=== PATIENT | male | born 1975 | race Hispanic/Latino ===

== ENCOUNTER 2016-11-15 07:24 | Inpatient (IN) | payer OTHER ==
--- NOTE | 2016-11-15 08:03 | Emergency Department Report ---
HPI - General Chief Complaint: Fever Time Seen by Provider: 11/15/16 07:52 - HPI HPI: This is a 40-year-old male presents to the emergency department by EMS from work with a complaint of fever, chills, shaking and weakness that has been going on for the past 3-4 hours. 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 The patient says that he has a history of recurrent left lower extremity cellulitis and borderline diabetes. He didn't take anything or was not given anything for his symptoms prior to presentation. ED Past Medical Hx - Past Medical History Hx Diabetes: Yes (Borderline) - Social History Smoking Status: Current Every Day Smoker Substance Use Type: None - Medications Home Medications: Home Medications Medication Instructions Recorded Confirmed Last Taken Type No Known Home Medications [No 11/15/16 11/15/16 Unknown History Reported Home Medications] ED Review of Systems ROS: Stated complaint: SHAKING/SHIVERS/FEVER Other details as noted in HPI Comment: All other systems reviewed and negative Constitutional: chills, fever Eyes: denies: eye pain, eye discharge, vision change ENT: denies: ear pain, throat pain Respiratory: cough. denies: wheezing Cardiovascular: denies: chest pain, palpitations Gastrointestinal: denies: abdominal pain, nausea, diarrhea Genitourinary: denies: urgency, dysuria Musculoskeletal: myalgia. denies: back pain Skin: rash, change in color Neurological: denies: headache, weakness, paresthesias Physical Exam - Physical Exam Vital Signs: Vital Signs 11/15/16 07:31 Temperature 103.1 F H Pulse Rate 104 H Blood Pressure 115/65 O2 Sat by Pulse 97 Oximetry Physical Exam: GENERAL: The patient is ill-appearing and shivering. HENT: Normocephalic. Atraumatic. Patient has moist mucous membranes. EYES: Extraocular motions are intact. Pupils equal reactive to light bilaterally. NECK: Supple. Trachea is midline. CHEST/LUNGS: Clear to auscultation. There is no respiratory distress noted. HEART/CARDIOVASCULAR: Regular. There is mild tachycardia. There is no gallop rub or murmur. ABDOMEN: Abdomen is soft, nontender. Patient has normal bowel sounds. There is no abdominal distention. SKIN: Skin is hot but dry. There is some erythema and warmth to the distal left lower extremity consistent with a cellulitis. NEURO: The patient is awake, alert. The patient is cooperative. The patient has no focal neurologic deficits. The patient has normal speech. MUSCULOSKELETAL: There is some tenderness palpation to the left lower extremity.. There is no limitation range of motion. ED Course Vital Signs 11/15/16 07:31 Temperature 103.1 F H Pulse Rate 104 H Blood Pressure 115/65 O2 Sat by Pulse 97 Oximetry ED Medical Decision Making - Lab Data Result diagrams: 11/15/16 07:50 11/15/16 07:50 - EKG Data -: EKG Interpreted by Me EKG shows normal: sinus rhythm, axis, intervals, QRS complexes, ST-T waves Rate: tachycardia (108 bpm) - EKG Data When compared to previous EKG there are: previous EKG unavailable Interpretation: normal EKG (with sinus tach) - Radiology Data Radiology results: report reviewed, image reviewed interpreted by me: Chest x-ray does not show any acute process. There are no pleural effusions, obvious pneumonia and there is no pneumothorax. CT of the head does not show any acute intracranial process including no ischemia, shift, mass, bleeding or skull fracture. - Medical Decision Making 40-year-old male presents to the emergency department by EMS, shivering, with a fever of 103, complaint of recurrent left lower extremity cellulitis and a mild cough. Chest x-ray does not show any acute process. There is a mild cellulitic rash to the left lower extremity. He was started on vancomycin after blood cultures were sent. Labs show a leukocytosis, lactic acidosis but otherwise no significant lab abnormalities that explain the patient's symptoms. He was given Tylenol and eventually Toradol and his fever improved. Attempted to get a left lower extremity venous Doppler to rule out a DVT but the patient refuses procedure. He did allow a CT of the head without contrast but it did not show any acute bleed, shift, mass, signs of infection or any acute process. The patient will be admitted to the hospital for sepsis and has been accepted for admission by the hospitalist, Dr. Garcia. - Differential Diagnosis Sepsis, Viral Syndrome, Cellulitis, Pneumonia Critical Care Time: No Critical care attestation.: If time is entered above; I have spent that time in minutes in the direct care of this critically ill patient, excluding procedure time. ED Disposition Clinical Impression: Lactic acidosis Cellulitis Qualifiers: Site of cellulitis: extremity Site of cellulitis of extremity: lower extremity Laterality: left Qualified Code(s): L03.116 - Cellulitis of left lower limb Sepsis Qualifiers: Sepsis type: sepsis due to unspecified organism Qualified Code(s): A41.9 - Sepsis, unspecified organism Disposition: OP ADMIT IP TO THIS HOSP Is pt being admited?: Yes Condition: Fair Time of Disposition: 15:08
[2016-11-15] MEDS ORDERED: TYLENOL PO ONE (08:04)
--- NOTE | 2016-11-15 08:13 | XRay Report ---
AP CHEST: HISTORY: Cough AP view of the chest demonstrates a normal mediastinal and cardiac contour with clear lungs and normal bony and soft tissue structures. IMPRESSION: Unremarkable AP chest.
[2016-11-15 08:14] LABS: Hematocrit 43.6 % (35.5-45.6); Hemoglobin 14.9 gm/dl (11.8-15.2); Mean Corpuscular HGB Conc 34 % (32-34); Mean Corpuscular Hemoglobin 33 pg (28-32); Mean Corpuscular Volume 96 fl (84-94); Platelet Count 124 K/mm3 (140-440); Red Blood Count 4.55 M/mm3 (3.65-5.03); Red Cell Distribution Width 12.9 % (13.2-15.2); White Blood Count 11.6 K/mm3 (4.5-11.0)
[2016-11-15 08:24] LABS: Anion Gap 18 mmol/L; Blood Urea Nitrogen 14 mg/dL (9-20); Calcium 8.2 mg/dL (8.4-10.2); Carbon Dioxide 23 mmol/L (22-30); Chloride 99.7 mmol/L (98-107); Glucose 146 mg/dL (75-100); Potassium 3.8 mmol/L (3.6-5.0); Sodium 137 mmol/L (137-145)
[2016-11-15 08:42] LABS: Alanine Aminotransferase 57 units/L (7-56); Albumin 3.8 g/dL (3.9-5); Albumin/Globulin Ratio 1.1 %; Alkaline Phosphatase 69 units/L (35-129); Total Protein 7.3 g/dL (6.3-8.2)
[2016-11-15 08:48] LABS: Bilirubin,Direct < 0.2 mg/dL (0-0.2); Bilirubin,Indirect 0.5 mg/dL
[2016-11-15] MEDS ORDERED: VANCOMYCIN/NS 1 GM/250 ML 1 GM/250 ML BAG IV ONE (09:08)
[2016-11-15] MEDS ORDERED: TORADOL IV ONE (09:34)
[2016-11-15 10:07] LABS: Blastocytes % (Manual) 0 %
[2016-11-15 10:08] LABS: Basophils % (Manual) 0 % (0.0-1.8); Diff Status Complete; Eosinophils % (Manual) 0 % (0.0-4.3); RBC Morphology Normal
[2016-11-15 10:28] LABS: Bilirubin,Urine NEG (Negative); Blood,Urine NEG (Negative); Ketones,Urine TR mg/dL (Negative); Leukocyte Esterase,Urine NEG (Negative); Mucus,Urine FEW /HPF; Nitrite,Urine NEG (Negative); Protein,Urine <15 mg/dL mg/dL (Negative); Urobilinogen,Urine < 2.0 mg/dL (<2.0)
[2016-11-15] MEDS ORDERED: NACL 0.9% 1000 ML 1,000 ML IV ONE (10:41)
--- NOTE | 2016-11-15 11:23 | Admit Criteria Form ---
Admission Criteria Documentation: FEBRILE ILLNESS, WITHOUT FOCAL INFECTION Clinical Indications for Admission to Inpatient Care (Place 'X' for any and all applicable criteria): Admission is indicated for ANY ONE of the following (1)(2)(3): [ ] I. Bacteremia [ ]II. Suspected or identified specific infection requiring hospitalization (eg, meningitis, endocarditis) [ ]III. Hemodynamic instability [ ]IV. Altered mental status [ ]V. Failure or unavailability of outpatient antimicrobial treatment [ ]. Hypoxemia [ ]VII. Seizures [ ]VIII. High-risk febrile neutropenia [ ]IX. Need for parenteral antibiotic in patient who is likely to abuse vascular access device (eg, injection drug user) [A](7) [ ]X. Temperature greater than 104.9 degrees F (40.5 degrees C) (oral) [X ]XI. Inpatient admission required rather than observation care because of ANY ONE of the following: [X ]a) Specific infection identified that is too severe for outpatient treatment or observation care trial [X ]b) Metabolic disorder (eg, hypoglycemia, hyperglycemia, metabolic acidosis) that is severe or persistent [ ]c) Temperature greater than 103.1 degrees F (39.5 degrees C) ( oral) that is not responsive to observation care treatment [ ]d) IV fluid to replace significant ongoing (eg, for over 24 hours) losses (> 3 L/m2 per day) [ ]e) Supplemental oxygen or respiratory treatments for over 24 hours that is performable only in acute inpatient setting [ ]f) Parenteral nutrition regimen need that must be implemented on inpatient basis [ ]g) Strict or protective (eg, laminar flow) isolation [ ]h) Other condition, treatment or monitoring requiring inpatient admission Extended stay beyond goal length of stay may be needed for(1)(3) [ ]a) Sepsis or septic shock(22) [ ]b) Positive blood cultures [ ]c) Insufficient oral intake [ ]d) High-risk febrile neutropenia(29)(30) [ ]e) Continued fever and clinical instability [ ]f) Clinically active comorbid illness (e.g,heart failure, renal failure , diabetes) The original [facility] content created by [facility] has been revised. The portions of the content which have been revised are identified through the use of italic text or in bold, and [facility] has neither reviewed nor approved the modified material. All other unmodified content is copyright [facility]. Please see references footnoted in the original [facility] edition 2016 Admission Criteria Met: Yes
--- NOTE | 2016-11-15 11:58 | Cat Scan Report ---
CT HEAD WITHOUT CONTRAST: HISTORY: Altered mental status. Serial contiguous axial images were obtained through the cranium. Intravenous contrast material was not administered. The ventricles are normal in size and appearance. There is no mass effect or midline shift. No areas of abnormally increased or decreased attenuation are seen. No mass lesion is seen. The mastoid air cells and visualized portions of the sinuses are normal. IMPRESSION: Cranial CT scan within normal limits.
[2016-11-15] MEDS ORDERED: NACL 0.9% 1000 ML IV ONE (12:59)
[2016-11-15] MEDS ORDERED: PROVENTIL IH PRN (12:59)
--- NOTE | 2016-11-15 13:04 | History and Physical Report ---
History of Present Illness Chief complaint: I had a fever, and i have cellulitis History of present illness: 40 YO Male with DM, Nicotine Dependence presents to ED for evaluation. Pt states that he began having fever this morning, while at work, as well as chills, shaking and weakness, which has gotten worse over the past 3-4 hours. Pt acknowledges left leg pain, redness and swelling that has also worsened over the past 2 days. Pt denies CP, Palpitations, NVD, Syncope, BRBPR, Recent ill contacts, seizures, productive cough, hemoptysis, or recent ill contacts. Past History Past Medical History: diabetes, other (nicotine dependence, metabolic syndrome) Past Surgical History: Other (reviewed). denies: No surgical history Social history: single, smoking. denies: alcohol abuse, prescription drug abuse , IV drug use Family history: no significant family history (reviewed) Medications and Allergies Allergies Allergy/AdvReac Type Severity Reaction Status Date / Time No Known Allergies Allergy Unverified 11/15/16 07:31 Home Medications Medication Instructions Recorded Confirmed Last Taken Type No Known Home Medications [No 11/15/16 11/15/16 Unknown History Reported Home Medications] Active Meds: Active Medications Acetaminophen (Tylenol) 650 mg PO Q4H PRN PRN Reason: Pain MILD(1-3)/Fever >100.5/GARCIA Albuterol (Proventil) 2.5 mg IH Q4HRT PRN PRN Reason: Shortness Of Breath Piperacillin Sod/Tazobactam Sod (Zosyn/Ns 4.5gm/100ml) 4.5 gm in 100 mls @ 200 mls/hr IV Q8HR AILYN PRN Reason: Protocol Sodium Chloride (Nacl 0.9% 1000 Ml) 4,080 ml 30 ml/kg (4080 ml) IV ONCE ONE Stop: 11/15/16 13:00 Review of Systems Constitutional: fever, chills, weakness, no weight loss, no weight gain Ears, nose, mouth and throat: no ear pain, no ear discharge, no tinnitis, no dysphagia, no hoarseness Cardiovascular: no chest pain, no orthopnea, no palpitations, no syncope, no dyspnea on exertion, no paroxysmal nocturnal dyspnea, no claudication Respiratory: no cough, no cough with sputum, no excessive sputum, no hemoptysis Gastrointestinal: no abdominal pain, no nausea, no vomiting Genitourinary Male: no dysuria, no hematuria, no flank pain Rectal: no pain, no incontinence, no bleeding Musculoskeletal: no neck stiffness, no neck pain, no shooting arm pain, no hot joints, no morning stiffness Integumentary: redness, no rash, no pruritis, no sores Neurological: no head injury, no transient paralysis, no paralysis, no numbness , no tingling, no syncope Psychiatric: no anxiety, no memory loss, no change in sleep habits, no hypersomnia, no change in appetite, no change in libido Endocrine: no cold intolerance, no heat intolerance, no polyphagia, no excessive thirst, no polyuria Hematologic/Lymphatic: no easy bruising, no easy bleeding Allergic/Immunologic: no urticaria, no allergic rhinitis, no wheezing Exam - Constitutional Vitals: Temp Pulse Resp BP Pulse Ox 99.7 F H 106 H 24 94/42 94 11/15/16 10:34 11/15/16 12:15 11/15/16 12:15 11/15/16 12:15 11/15/16 12:15 General appearance: Present: mild distress - EENT Eyes: Present: PERRL ENT: hearing intact, clear oral mucosa - Neck Neck: Present: supple, normal ROM - Respiratory Respiratory effort: normal Respiratory: bilateral: CTA - Cardiovascular Heart Sounds: Present: S1 & S2. Absent: rub, click - Extremities Extremities: pulses symmetrical, No edema Peripheral Pulses: abnormal (capillary refill: 3.5 seconds) - Abdominal General gastrointestinal: Present: soft, non-tender, non-distended, normal bowel sounds Male genitourinary: Present: normal - Integumentary Integumentary: Present: clear, warm, dry, decreased turgor - Musculoskeletal Musculoskeletal: generalized weakness - Psychiatric Psychiatric: appropriate mood/affect, intact judgment & insight - Neurologic Neurologic: CNII-XII intact, moves all extremities Results - Labs CBC & Chem 7: 11/15/16 07:50 11/15/16 07:50 Labs: Abnormal lab results 11/15/16 11/15/16 11/15/16 Range/Units 07:50 07:50 07:50 WBC 11.6 H (4.5-11.0) K/mm3 MCV 96 H (84-94) fl MCH 33 H (28-32) pg RDW 12.9 L (13.2-15.2) % Plt Count 124 L (140-440) K/mm3 Seg Neuts % (Manual) 80.0 H (40.0-70.0) % Lymphocytes % (Manual) 10.0 L (13.4-35.0) % Seg Neutrophils # Man 9.3 H (1.8-7.7) K/mm3 Glucose 146 H (75-100) mg/dL Lactic Acid 2.30 H* (0.7-2.0) mmol/L Calcium 8.2 L (8.4-10.2) mg/dL AST (5-40) units/L ALT (7-56) units/L Albumin (3.9-5) g/dL 11/15/16 11/15/16 Range/Units 07:50 10:20 WBC (4.5-11.0) K/mm3 MCV (84-94) fl MCH (28-32) pg RDW (13.2-15.2) % Plt Count (140-440) K/mm3 Seg Neuts % (Manual) (40.0-70.0) % Lymphocytes % (Manual) (13.4-35.0) % Seg Neutrophils # Man (1.8-7.7) K/mm3 Glucose (75-100) mg/dL Lactic Acid 2.20 H* (0.7-2.0) mmol/L Calcium (8.4-10.2) mg/dL AST 42 H (5-40) units/L ALT 57 H (7-56) units/L Albumin 3.8 L (3.9-5) g/dL Assessment and Plan - Patient Problems (1) Sepsis Current Visit: Yes Status: Acute Qualifiers: Sepsis type: methicillin resistant Staphylococcus aureus Qualified Code(s) : A41.02 - Sepsis due to Methicillin resistant Staphylococcus aureus Plan to address problem: Sepsis Protocol: IV abx, ivf, serial lactate, supportive care, blood cultures, monitor uop q shift (2) Cellulitis Current Visit: Yes Status: Acute Qualifiers: Site of cellulitis: S Site of cellulitis of extremity: S Site of cellulitis of trunk: S Laterality: L Plan to address problem: IV abx, supportive care, LLE Duplex (3) Lactic acidosis Current Visit: Yes Status: Acute Plan to address problem: IVF resuscitation, supportive care. (4) Metabolic syndrome Current Visit: Yes Status: Acute Plan to address problem: IVF, supportive care. (5) DVT prophylaxis Current Visit: Yes Status: Acute
[2016-11-15] MEDS: ZOSYN/NS 4.5GM/100ML 4.5 GM/100 ML VIAL IV SCH ×2 (14:15→22:12)
[2016-11-15] MEDS: NACL 0.9% 1000 ML 1,000 ML IV SCH ×2 (17:56→22:10)
[2016-11-15] MEDS: TYLENOL PO PRN (22:12)
[2016-11-16] MEDS: TYLENOL PO PRN (05:23)
[2016-11-16] MEDS: NACL 0.9% 1000 ML 1,000 ML IV SCH (05:24)
[2016-11-16] MEDS: ZOSYN/NS 4.5GM/100ML 4.5 GM/100 ML VIAL IV SCH ×3 (05:25→23:08)
--- NOTE | 2016-11-16 09:05 | Progress Note ---
Assessment and Plan Assessment and plan: (1) Sepsis Current Visit: Yes Status: Acute Qualifiers: Sepsis type: methicillin resistant Staphylococcus aureus Qualified Code(s) : A41.02 - Sepsis due to Methicillin resistant Staphylococcus aureus Plan to address problem: Sepsis Protocol: IV abx, ivf, monitor serial lactate, supportive care, blood cultures, monitor uop q shift (2) Cellulitis Current Visit: Yes Status: Acute Qualifiers: Site of cellulitis: S Site of cellulitis of extremity: S Site of cellulitis of trunk: S Laterality: L Plan to address problem: Continue IV abx, supportive care, LLE Duplex is negative for DVT. Pain control. (3) Lactic acidosis Current Visit: Yes Status: Acute Plan to address problem: IVF resuscitation, supportive care. (4) Metabolic syndrome Current Visit: Yes Status: Acute Plan to address problem: IVF, supportive care. (5) DVT prophylaxis Current Visit: Yes Status: Acute Add Lovenox daily. History Interval history: Patient complains of left lower extremity pain. Hospitalist Physical - Constitutional Vitals: Temp Pulse Resp BP Pulse Ox 99 F 98 H 24 95/52 94 11/16/16 07:15 11/16/16 07:15 11/16/16 07:15 11/16/16 07:15 11/16/16 07:15 General appearance: Present: mild distress - EENT Eyes: Present: PERRL, EOM intact ENT: hearing intact, clear oral mucosa, dentition normal - Neck Neck: Present: supple, normal ROM - Respiratory Respiratory effort: normal Respiratory: bilateral: CTA - Cardiovascular Rhythm: regular Heart Sounds: Present: S1 & S2. Absent: gallop, rub - Extremities Extremities: no ischemia, Full ROM Extremity abnormal: edema, erythema (LLE) - Abdominal General gastrointestinal: soft, non-tender, non-distended, normal bowel sounds - Integumentary Integumentary: Present: clear, warm, dry - Neurologic Neurologic: CNII-XII intact, moves all extremities Results - Labs CBC & Chem 7: 11/15/16 07:50 11/15/16 07:50 Labs: Laboratory Last Values WBC 11.6 K/mm3 (4.5-11.0) H 11/15/16 07:50 RBC 4.55 M/mm3 (3.65-5.03) 11/15/16 07:50 Hgb 14.9 gm/dl (11.8-15.2) 11/15/16 07:50 Hct 43.6 % (35.5-45.6) 11/15/16 07:50 MCV 96 fl (84-94) H 11/15/16 07:50 MCH 33 pg (28-32) H 11/15/16 07:50 MCHC 34 % (32-34) 11/15/16 07:50 RDW 12.9 % (13.2-15.2) L 11/15/16 07:50 Plt Count 124 K/mm3 (140-440) L 11/15/16 07:50 Add Manual Diff Complete 11/15/16 07:50 Total Counted 100 11/15/16 07:50 Seg Neuts % (Manual) 80.0 % (40.0-70.0) H 11/15/16 07:50 Band Neutrophils % 6.0 % 11/15/16 07:50 Lymphocytes % (Manual) 10.0 % (13.4-35.0) L 11/15/16 07:50 Reactive Lymphs % (Man) 0 % 11/15/16 07:50 Monocytes % (Manual) 4.0 % (0.0-7.3) 11/15/16 07:50 Eosinophils % (Manual) 0 % (0.0-4.3) 11/15/16 07:50 Basophils % (Manual) 0 % (0.0-1.8) 11/15/16 07:50 Metamyelocytes % 0 % 11/15/16 07:50 Myelocytes % 0 % 11/15/16 07:50 Promyelocytes % 0 % 11/15/16 07:50 Blast Cells % 0 % 11/15/16 07:50 Nucleated RBC % Not Reportable 11/15/16 07:50 Seg Neutrophils # Man 9.3 K/mm3 (1.8-7.7) H 11/15/16 07:50 Band Neutrophils # 0.7 K/mm3 11/15/16 07:50 Lymphocytes # (Manual) 1.2 K/mm3 (1.2-5.4) 11/15/16 07:50 Abs React Lymphs (Man) 0.0 K/mm3 11/15/16 07:50 Monocytes # (Manual) 0.5 K/mm3 (0.0-0.8) 11/15/16 07:50 Eosinophils # (Manual) 0.0 K/mm3 (0.0-0.4) 11/15/16 07:50 Basophils # (Manual) 0.0 K/mm3 (0.0-0.1) 11/15/16 07:50 Metamyelocytes # 0.0 K/mm3 11/15/16 07:50 Myelocytes # 0.0 K/mm3 11/15/16 07:50 Promyelocytes # 0.0 K/mm3 11/15/16 07:50 Blast Cells # 0.0 K/mm3 11/15/16 07:50 WBC Morphology Not Reportable 11/15/16 07:50 Hypersegmented Neuts Not Reportable 11/15/16 07:50 Hyposegmented Neuts Not Reportable 11/15/16 07:50 Hypogranular Neuts Not Reportable 11/15/16 07:50 Smudge Cells Not Reportable 11/15/16 07:50 Toxic Granulation Not Reportable 11/15/16 07:50 Toxic Vacuolation Not Reportable 11/15/16 07:50 Dohle Bodies Not Reportable 11/15/16 07:50 Pelger-Huet Anomaly Not Reportable 11/15/16 07:50 Dipti Rods Not Reportable 11/15/16 07:50 Platelet Estimate Not Reportable 11/15/16 07:50 Clumped Platelets Not Reportable 11/15/16 07:50 Plt Clumps, EDTA Not Reportable 11/15/16 07:50 Large Platelets Not Reportable 11/15/16 07:50 Giant Platelets Not Reportable 11/15/16 07:50 Platelet Satelliting Not Reportable 11/15/16 07:50 Plt Morphology Comment Not Reportable 11/15/16 07:50 RBC Morphology Normal 11/15/16 07:50 Dimorphic RBCs Not Reportable 11/15/16 07:50 Polychromasia Not Reportable 11/15/16 07:50 Hypochromasia Not Reportable 11/15/16 07:50 Poikilocytosis Not Reportable 11/15/16 07:50 Anisocytosis Not Reportable 11/15/16 07:50 Microcytosis Not Reportable 11/15/16 07:50 Macrocytosis Not Reportable 11/15/16 07:50 Spherocytes Not Reportable 11/15/16 07:50 Pappenheimer Bodies Not Reportable 11/15/16 07:50 Sickle Cells Not Reportable 11/15/16 07:50 Target Cells Not Reportable 11/15/16 07:50 Tear Drop Cells Not Reportable 11/15/16 07:50 Ovalocytes Not Reportable 11/15/16 07:50 Helmet Cells Not Reportable 11/15/16 07:50 Roe-Portal Bodies Not Reportable 11/15/16 07:50 [place] Rings Not Reportable 11/15/16 07:50 Piffard Cells Not Reportable 11/15/16 07:50 Bite Cells Not Reportable 11/15/16 07:50 Crenated Cell Not Reportable 11/15/16 07:50 Elliptocytes Not Reportable 11/15/16 07:50 Acanthocytes (Spur) Not Reportable 11/15/16 07:50 Rouleaux Not Reportable 11/15/16 07:50 Hemoglobin C Crystals Not Reportable 11/15/16 07:50 Schistocytes Not Reportable 11/15/16 07:50 Malaria parasites Not Reportable 11/15/16 07:50 Evin Bodies Not Reportable 11/15/16 07:50 Hem Pathologist Commnt No 11/15/16 07:50 D-Dimer 298.29 ng/mlDDU (0-234) H 11/15/16 12:33 Sodium 137 mmol/L (137-145) 11/15/16 07:50 Potassium 3.8 mmol/L (3.6-5.0) 11/15/16 07:50 Chloride 99.7 mmol/L (98-107) 11/15/16 07:50 Carbon Dioxide 23 mmol/L (22-30) 11/15/16 07:50 Anion Gap 18 mmol/L 11/15/16 07:50 BUN 14 mg/dL (9-20) 11/15/16 07:50 Creatinine 0.8 mg/dL (0.8-1.5) 11/15/16 07:50 Estimated GFR > 60 ml/min 11/15/16 07:50 BUN/Creatinine Ratio 17.50 % 11/15/16 07:50 Glucose 146 mg/dL (75-100) H 11/15/16 07:50 POC Glucose 135 (70-105) H 11/16/16 06:32 Lactic Acid 2.20 mmol/L (0.7-2.0) H* 11/15/16 19:40 Calcium 8.2 mg/dL (8.4-10.2) L 11/15/16 07:50 Total Bilirubin 0.70 mg/dL (0.1-1.2) 11/15/16 07:50 Direct Bilirubin < 0.2 mg/dL (0-0.2) 11/15/16 07:50 Indirect Bilirubin 0.5 mg/dL 11/15/16 07:50 AST 42 units/L (5-40) H 11/15/16 07:50 ALT 57 units/L (7-56) H 11/15/16 07:50 Alkaline Phosphatase 69 units/L (35-129) 11/15/16 07:50 Troponin T < 0.010 ng/mL (0.00-0.029) 11/15/16 07:50 Total Protein 7.3 g/dL (6.3-8.2) 11/15/16 07:50 Albumin 3.8 g/dL (3.9-5) L 11/15/16 07:50 Albumin/Globulin Ratio 1.1 % 11/15/16 07:50 Urine Color Yellow (Yellow) 11/15/16 10:14 Urine Turbidity Clear (Clear) 11/15/16 10:14 Urine pH 5.0 (5.0-7.0) 11/15/16 10:14 Ur Specific [place] 1.013 (1.003-1.030) 11/15/16 10:14 Urine Protein <15 mg/dl mg/dL (Negative) 11/15/16 10:14 Urine Glucose (UA) Neg mg/dL (Negative) 11/15/16 10:14 Urine Ketones Tr mg/dL (Negative) 11/15/16 10:14 Urine Blood Neg (Negative) 11/15/16 10:14 Urine Nitrite Neg (Negative) 11/15/16 10:14 Urine Bilirubin Neg (Negative) 11/15/16 10:14 Urine Urobilinogen < 2.0 mg/dL (<2.0) 11/15/16 10:14 Ur Leukocyte Esterase Neg (Negative) 11/15/16 10:14 Urine WBC (Auto) 1.0 /HPF (0.0-6.0) 11/15/16 10:14 Urine RBC (Auto) 3.0 /HPF (0.0-6.0) 11/15/16 10:14 Urine Mucus Few /HPF 11/15/16 10:14 Blood Type A POSITIVE 11/15/16 13:26 Antibody Screen Negative 11/15/16 13:26
[2016-11-16 09:07] LABS: Urine Drugs of Abuse Note Disclamer
--- NOTE | 2016-11-16 09:30 | Vascular Lab Report ---
Left Lower Extremity Venous Duplex Study: Reason for Exam: Pain of the left lower extremity. Comments on the Right: A limited duplex study was done of the proximal veins of the right lower extremity. All veins visualized are freely compressible without evidence of internal echogenicity. Flow is spontaneous and phasic throughout. No evidence of acute or chronic thrombus is seen in any of the vessels visualized. Comments on the Left: All veins visualized are freely compressible without evidence of internal echogenicity. Flow is spontaneous and phasic throughout. No evidence of acute or chronic thrombus is seen in any of the vessels visualized. Impression: No evidence of acute or chronic deep venous thrombosis in the left lower extremity.
[2016-11-16 09:45] LABS: Bilirubin,Urine NEG (Negative); Blood,Urine NEG (Negative); Ketones,Urine 20 mg/dL (Negative); Leukocyte Esterase,Urine NEG (Negative); Nitrite,Urine NEG (Negative); Protein,Urine <15 mg/dL mg/dL (Negative); Urobilinogen,Urine < 2.0 mg/dL (<2.0)
[2016-11-16] MEDS: VANCOMYCIN 1,750 MG in NACL 0.9% 500 ML 500 ML IV SCH ×2 (10:59→21:06)
[2016-11-16] MEDS ORDERED: VANCOMYCIN PHARMACY TO DOSE IV SCH (11:00)
[2016-11-16] MEDS: ROBITUSSIN DM PO PRN (13:05)
[2016-11-16] MEDS: PERCOCET 5/325 PO PRN ×3 (13:06→23:59)
[2016-11-16] MEDS: HABITROL TD SCH (16:34)
[2016-11-16] MEDS: LOVENOX SUB-Q SCH (21:33)
[2016-11-17] MEDS: VANCOMYCIN 1,750 MG in NACL 0.9% 500 ML 500 ML IV SCH ×3 (04:47→21:13)
[2016-11-17] MEDS: PERCOCET 5/325 PO PRN ×3 (05:43→18:10)
[2016-11-17 05:53] LABS: Anion Gap 18 mmol/L; BUN/Creatinine Ratio 14.28; Blood Urea Nitrogen 10 mg/dL (9-20); Calcium 8.1 mg/dL (8.4-10.2); Carbon Dioxide 25 mmol/L (22-30); Chloride 97.7 mmol/L (98-107); Glucose 105 mg/dL (75-100); Potassium 3.3 mmol/L (3.6-5.0); Sodium 137 mmol/L (137-145)
[2016-11-17 05:56] LABS: Basophils % (Auto) 0.3 % (0.0-1.8); Eosinophils % (Auto) 1.1 % (0.0-4.3); Hematocrit 41.2 % (35.5-45.6); Mean Corpuscular HGB Conc 34 % (32-34); Mean Corpuscular Hemoglobin 33 pg (28-32); Mean Corpuscular Volume 95 fl (84-94); Platelet Count 125 K/mm3 (140-440); Red Blood Count 4.33 M/mm3 (3.65-5.03); Red Cell Distribution Width 12.8 % (13.2-15.2); White Blood Count 12.4 K/mm3 (4.5-11.0)
[2016-11-17] MEDS: ZOSYN/NS 4.5GM/100ML 4.5 GM/100 ML VIAL IV SCH ×3 (06:27→21:16)
[2016-11-17] MEDS: HABITROL TD SCH (09:24)
[2016-11-17] MEDS ORDERED: K-DUR PO ONE (13:00)
--- NOTE | 2016-11-17 19:44 | Progress Note ---
Assessment and Plan Assessment and plan: 40 yo male, morbidly obese, with multiple episodes of left leg cellulitis, presented for left leg pain, redness, swelling associated with fever and chills 1. Sepsis due to LE cellulitis Blood cultures obtained Started on IV antibiotics and IV fluids 2. LLE cellulitis History of multiple episodes in the past (same location) Doppler excluded DVT/SVT Continue IV antibiotics, pain control medication, local and supportive care 3. Hypokalemia Replace and recheck in a.m. 4. Thrombocytopenia Likely secondary to sepsis Monitor 5. Morbid obesity/metabolic syndrome Counseled regarding importance of losing weight and lifestyle changes 6. Tobacco abuse Nicotine patch Counseled regarding importance of quitting 7. CHARLES CPAP daily at bedtime and prn during naps 8. DVT prophylaxis Lovenox History Interval history: c/o left leg pain Hospitalist Physical - Constitutional Vitals: Temp Pulse Resp BP Pulse Ox 98.9 F 96 H 16 115/76 65 L 11/17/16 14:25 11/17/16 14:25 11/17/16 14:25 11/17/16 14:25 11/17/16 14:25 General appearance: Present: mild distress, obese (morbidly) - EENT Eyes: Present: PERRL, EOM intact. Absent: scleral icterus, conjunctival injection - Neck Neck: Absent: enlarged thyroid, masses or JVD, carotid bruits - Respiratory Respiratory effort: labored (with minimal activity) Respiratory: bilateral: diminished (due to body habitus), negative: rhonchi, wheezing - Cardiovascular Rhythm: other (tachycardic) Heart Sounds: Present: S1 & S2. Absent: systolic murmur - Extremities Extremities: no ischemia, pulses intact, abnormal (LLE erythema/edema/tendernes between the knee and the ankle) - Abdominal General gastrointestinal: soft, non-tender, normal bowel sounds, other (abd obese, protuberant) - Neurologic Neurologic: no focal deficits Results - Labs CBC & Chem 7: 11/18/16 03:47 11/18/16 03:47 Labs: Laboratory Last Values WBC 12.4 K/mm3 (4.5-11.0) H 11/17/16 05:17 RBC 4.33 M/mm3 (3.65-5.03) 11/17/16 05:17 Hgb 14.0 gm/dl (11.8-15.2) 11/17/16 05:17 Hct 41.2 % (35.5-45.6) 11/17/16 05:17 MCV 95 fl (84-94) H 11/17/16 05:17 MCH 33 pg (28-32) H 11/17/16 05:17 MCHC 34 % (32-34) 11/17/16 05:17 RDW 12.8 % (13.2-15.2) L 11/17/16 05:17 Plt Count 125 K/mm3 (140-440) L 11/17/16 05:17 Lymph % (Auto) 13.2 % (13.4-35.0) L 11/17/16 05:17 [place] % (Auto) 7.1 % (0.0-7.3) 11/17/16 05:17 Eos % (Auto) 1.1 % (0.0-4.3) 11/17/16 05:17 Baso % (Auto) 0.3 % (0.0-1.8) 11/17/16 05:17 Lymph # 1.6 K/mm3 (1.2-5.4) 11/17/16 05:17 [place] # 0.9 K/mm3 (0.0-0.8) H 11/17/16 05:17 Eos # 0.1 K/mm3 (0.0-0.4) 11/17/16 05:17 Baso # 0.0 K/mm3 (0.0-0.1) 11/17/16 05:17 Add Manual Diff Complete 11/15/16 07:50 Total Counted 100 11/15/16 07:50 Seg Neutrophils % 78.3 % (40.0-70.0) H 11/17/16 05:17 Seg Neuts % (Manual) 80.0 % (40.0-70.0) H 11/15/16 07:50 Band Neutrophils % 6.0 % 11/15/16 07:50 Lymphocytes % (Manual) 10.0 % (13.4-35.0) L 11/15/16 07:50 Reactive Lymphs % (Man) 0 % 11/15/16 07:50 Monocytes % (Manual) 4.0 % (0.0-7.3) 11/15/16 07:50 Eosinophils % (Manual) 0 % (0.0-4.3) 11/15/16 07:50 Basophils % (Manual) 0 % (0.0-1.8) 11/15/16 07:50 Metamyelocytes % 0 % 11/15/16 07:50 Myelocytes % 0 % 11/15/16 07:50 Promyelocytes % 0 % 11/15/16 07:50 Blast Cells % 0 % 11/15/16 07:50 Nucleated RBC % Not Reportable 11/15/16 07:50 Seg Neutrophils # 9.7 K/mm3 (1.8-7.7) H 11/17/16 05:17 Seg Neutrophils # Man 9.3 K/mm3 (1.8-7.7) H 11/15/16 07:50 Band Neutrophils # 0.7 K/mm3 11/15/16 07:50 Lymphocytes # (Manual) 1.2 K/mm3 (1.2-5.4) 11/15/16 07:50 Abs React Lymphs (Man) 0.0 K/mm3 11/15/16 07:50 Monocytes # (Manual) 0.5 K/mm3 (0.0-0.8) 11/15/16 07:50 Eosinophils # (Manual) 0.0 K/mm3 (0.0-0.4) 11/15/16 07:50 Basophils # (Manual) 0.0 K/mm3 (0.0-0.1) 11/15/16 07:50 Metamyelocytes # 0.0 K/mm3 11/15/16 07:50 Myelocytes # 0.0 K/mm3 11/15/16 07:50 Promyelocytes # 0.0 K/mm3 11/15/16 07:50 Blast Cells # 0.0 K/mm3 11/15/16 07:50 WBC Morphology Not Reportable 11/15/16 07:50 Hypersegmented Neuts Not Reportable 11/15/16 07:50 Hyposegmented Neuts Not Reportable 11/15/16 07:50 Hypogranular Neuts Not Reportable 11/15/16 07:50 Smudge Cells Not Reportable 11/15/16 07:50 Toxic Granulation Not Reportable 11/15/16 07:50 Toxic Vacuolation Not Reportable 11/15/16 07:50 Dohle Bodies Not Reportable 11/15/16 07:50 Pelger-Huet Anomaly Not Reportable 11/15/16 07:50 Dipti Rods Not Reportable 11/15/16 07:50 Platelet Estimate Not Reportable 11/15/16 07:50 Clumped Platelets Not Reportable 11/15/16 07:50 Plt Clumps, EDTA Not Reportable 11/15/16 07:50 Large Platelets Not Reportable 11/15/16 07:50 Giant Platelets Not Reportable 11/15/16 07:50 Platelet Satelliting Not Reportable 11/15/16 07:50 Plt Morphology Comment Not Reportable 11/15/16 07:50 RBC Morphology Normal 11/15/16 07:50 Dimorphic RBCs Not Reportable 11/15/16 07:50 Polychromasia Not Reportable 11/15/16 07:50 Hypochromasia Not Reportable 11/15/16 07:50 Poikilocytosis Not Reportable 11/15/16 07:50 Anisocytosis Not Reportable 11/15/16 07:50 Microcytosis Not Reportable 11/15/16 07:50 Macrocytosis Not Reportable 11/15/16 07:50 Spherocytes Not Reportable 11/15/16 07:50 Pappenheimer Bodies Not Reportable 11/15/16 07:50 Sickle Cells Not Reportable 11/15/16 07:50 Target Cells Not Reportable 11/15/16 07:50 Tear Drop Cells Not Reportable 11/15/16 07:50 Ovalocytes Not Reportable 11/15/16 07:50 Helmet Cells Not Reportable 11/15/16 07:50 [place] Bodies Not Reportable 11/15/16 07:50 [place] Rings Not Reportable 11/15/16 07:50 [place] Cells Not Reportable 11/15/16 07:50 Bite Cells Not Reportable 11/15/16 07:50 Crenated Cell Not Reportable 11/15/16 07:50 Elliptocytes Not Reportable 11/15/16 07:50 Acanthocytes (Spur) Not Reportable 11/15/16 07:50 Rouleaux Not Reportable 11/15/16 07:50 Hemoglobin C Crystals Not Reportable 11/15/16 07:50 Schistocytes Not Reportable 11/15/16 07:50 Malaria parasites Not Reportable 11/15/16 07:50 [place] Bodies Not Reportable 11/15/16 07:50 Hem Pathologist Commnt No 11/15/16 07:50 D-Dimer 298.29 ng/mlDDU (0-234) H 11/15/16 12:33 Sodium 137 mmol/L (137-145) 11/17/16 05:17 Potassium 3.3 mmol/L (3.6-5.0) L 11/17/16 05:17 Chloride 97.7 mmol/L (98-107) L 11/17/16 05:17 Carbon Dioxide 25 mmol/L (22-30) 11/17/16 05:17 Anion Gap 18 mmol/L 11/17/16 05:17 BUN 10 mg/dL (9-20) 11/17/16 05:17 Creatinine 0.7 mg/dL (0.8-1.5) L 11/17/16 05:17 Estimated GFR > 60 ml/min 11/17/16 05:17 BUN/Creatinine Ratio 14.28 % 11/17/16 05:17 Glucose 105 mg/dL (75-100) H 11/17/16 05:17 POC Glucose 143 (70-105) H 11/17/16 16:07 Lactic Acid 2.20 mmol/L (0.7-2.0) H* 11/15/16 19:40 Calcium 8.1 mg/dL (8.4-10.2) L 11/17/16 05:17 Total Bilirubin 0.70 mg/dL (0.1-1.2) 11/15/16 07:50 Direct Bilirubin < 0.2 mg/dL (0-0.2) 11/15/16 07:50 Indirect Bilirubin 0.5 mg/dL 11/15/16 07:50 AST 42 units/L (5-40) H 11/15/16 07:50 ALT 57 units/L (7-56) H 11/15/16 07:50 Alkaline Phosphatase 69 units/L (35-129) 11/15/16 07:50 Troponin T < 0.010 ng/mL (0.00-0.029) 11/15/16 07:50 Total Protein 7.3 g/dL (6.3-8.2) 11/15/16 07:50 Albumin 3.8 g/dL (3.9-5) L 11/15/16 07:50 Albumin/Globulin Ratio 1.1 % 11/15/16 07:50 Urine Color Yellow (Yellow) 11/16/16 Unknown Urine Turbidity Clear (Clear) 11/16/16 Unknown Urine pH 5.0 (5.0-7.0) 11/16/16 Unknown Ur Specific [place] 1.024 (1.003-1.030) 11/16/16 Unknown Urine Protein <15 mg/dl mg/dL (Negative) 11/16/16 Unknown Urine Glucose (UA) Neg mg/dL (Negative) 11/16/16 Unknown Urine Ketones 20 mg/dL (Negative) 11/16/16 Unknown Urine Blood Neg (Negative) 11/16/16 Unknown Urine Nitrite Neg (Negative) 11/16/16 Unknown Urine Bilirubin Neg (Negative) 11/16/16 Unknown Urine Urobilinogen < 2.0 mg/dL (<2.0) 11/16/16 Unknown Ur Leukocyte Esterase Neg (Negative) 11/16/16 Unknown Urine WBC (Auto) 8.0 /HPF (0.0-6.0) H 11/16/16 Unknown Urine RBC (Auto) 1.0 /HPF (0.0-6.0) 11/16/16 Unknown U Epithel Cells (Auto) < 1.0 /HPF (0-13.0) 11/16/16 Unknown Urine Mucus Few /HPF 11/15/16 10:14 Vancomycin Trough 13.3 ug/mL (5.0-20.0) 11/17/16 10:55 Urine Opiates Screen Presumptive negative 11/16/16 Unknown Urine Methadone Screen Presumptive negative 11/16/16 Unknown Ur Barbiturates Screen Presumptive negative 11/16/16 Unknown Ur Phencyclidine Scrn Presumptive negative 11/16/16 Unknown Ur Amphetamines Screen Presumptive negative 11/16/16 Unknown U Benzodiazepines Scrn Presumptive negative 11/16/16 Unknown Urine Cocaine Screen Presumptive negative 11/16/16 Unknown U Marijuana (THC) Screen Presumptive negative 11/16/16 Unknown Drugs of Abuse Note Disclamer 11/16/16 Unknown Blood Type A POSITIVE 11/15/16 13:26 Antibody Screen Negative 11/15/16 13:26
[2016-11-17] MEDS: LOVENOX SUB-Q SCH (21:17)
[2016-11-18] MEDS: ROBITUSSIN DM PO PRN (01:48)
[2016-11-18] MEDS: PERCOCET 5/325 PO PRN ×3 (01:48→21:00)
[2016-11-18] MEDS: VANCOMYCIN 1,750 MG in NACL 0.9% 500 ML 500 ML IV SCH ×3 (03:42→21:10)
[2016-11-18 05:03] LABS: Anion Gap 15 mmol/L; Basophils % (Auto) 0.3 % (0.0-1.8); Blood Urea Nitrogen 6 mg/dL (9-20); Calcium 7.8 mg/dL (8.4-10.2); Carbon Dioxide 27 mmol/L (22-30); Chloride 99.8 mmol/L (98-107); Eosinophils % (Auto) 2.3 % (0.0-4.3); Glucose 135 mg/dL (75-100); Hematocrit 37.9 % (35.5-45.6); Mean Corpuscular HGB Conc 34 % (32-34); Mean Corpuscular Hemoglobin 33 pg (28-32); Mean Corpuscular Volume 95 fl (84-94); Platelet Count 128 K/mm3 (140-440); Potassium 3.7 mmol/L (3.6-5.0); Red Blood Count 3.99 M/mm3 (3.65-5.03); Red Cell Distribution Width 12.7 % (13.2-15.2); Sodium 138 mmol/L (137-145); White Blood Count 8.4 K/mm3 (4.5-11.0)
[2016-11-18] MEDS: ZOSYN/NS 4.5GM/100ML 4.5 GM/100 ML VIAL IV SCH ×3 (06:13→23:02)
[2016-11-18] MEDS: HABITROL TD SCH (10:09)
--- NOTE | 2016-11-18 19:46 | Progress Note ---
Assessment and Plan Assessment and plan: 40 yo male, morbidly obese, with multiple episodes of left leg cellulitis, presented for left leg pain, redness, swelling associated with fever and chills 1. Sepsis due to LE cellulitis Blood cultures obtained Started on IV antibiotics and IV fluids 2. LLE cellulitis History of multiple episodes in the past (same location) Doppler excluded DVT/SVT Continue IV antibiotics, pain control medication, local and supportive care 3. Hypokalemia Replace and recheck in a.m. 4. Thrombocytopenia Likely secondary to sepsis Monitor 5. Morbid obesity/metabolic syndrome Counseled regarding importance of losing weight and lifestyle changes 6. Tobacco abuse Nicotine patch Counseled regarding importance of quitting 7. CHARLES CPAP daily at bedtime and prn during naps 8. DVT prophylaxis Lovenox Hospitalist Physical - Constitutional Vitals: Temp Pulse Resp BP Pulse Ox 98.5 F 96 H 20 132/68 95 11/18/16 16:00 11/18/16 16:00 11/18/16 16:00 11/18/16 16:00 11/18/16 08:00 General appearance: Present: mild distress, obese (morbidly) Results - Labs CBC & Chem 7: 11/18/16 03:47 11/18/16 03:47 Labs: Laboratory Last Values WBC 8.4 K/mm3 (4.5-11.0) 11/18/16 03:47 RBC 3.99 M/mm3 (3.65-5.03) 11/18/16 03:47 Hgb 13.0 gm/dl (11.8-15.2) 11/18/16 03:47 Hct 37.9 % (35.5-45.6) 11/18/16 03:47 MCV 95 fl (84-94) H 11/18/16 03:47 MCH 33 pg (28-32) H 11/18/16 03:47 MCHC 34 % (32-34) 11/18/16 03:47 RDW 12.7 % (13.2-15.2) L 11/18/16 03:47 Plt Count 128 K/mm3 (140-440) L 11/18/16 03:47 Lymph % (Auto) 16.3 % (13.4-35.0) 11/18/16 03:47 [place] % (Auto) 8.3 % (0.0-7.3) H 11/18/16 03:47 Eos % (Auto) 2.3 % (0.0-4.3) 11/18/16 03:47 Baso % (Auto) 0.3 % (0.0-1.8) 11/18/16 03:47 Lymph # 1.4 K/mm3 (1.2-5.4) 11/18/16 03:47 [place] # 0.7 K/mm3 (0.0-0.8) 11/18/16 03:47 Eos # 0.2 K/mm3 (0.0-0.4) 11/18/16 03:47 Baso # 0.0 K/mm3 (0.0-0.1) 11/18/16 03:47 Add Manual Diff Complete 11/15/16 07:50 Total Counted 100 11/15/16 07:50 Seg Neutrophils % 72.8 % (40.0-70.0) H 11/18/16 03:47 Seg Neuts % (Manual) 80.0 % (40.0-70.0) H 11/15/16 07:50 Band Neutrophils % 6.0 % 11/15/16 07:50 Lymphocytes % (Manual) 10.0 % (13.4-35.0) L 11/15/16 07:50 Reactive Lymphs % (Man) 0 % 11/15/16 07:50 Monocytes % (Manual) 4.0 % (0.0-7.3) 11/15/16 07:50 Eosinophils % (Manual) 0 % (0.0-4.3) 11/15/16 07:50 Basophils % (Manual) 0 % (0.0-1.8) 11/15/16 07:50 Metamyelocytes % 0 % 11/15/16 07:50 Myelocytes % 0 % 11/15/16 07:50 Promyelocytes % 0 % 11/15/16 07:50 Blast Cells % 0 % 11/15/16 07:50 Nucleated RBC % Not Reportable 11/15/16 07:50 Seg Neutrophils # 6.1 K/mm3 (1.8-7.7) 11/18/16 03:47 Seg Neutrophils # Man 9.3 K/mm3 (1.8-7.7) H 11/15/16 07:50 Band Neutrophils # 0.7 K/mm3 11/15/16 07:50 Lymphocytes # (Manual) 1.2 K/mm3 (1.2-5.4) 11/15/16 07:50 Abs React Lymphs (Man) 0.0 K/mm3 11/15/16 07:50 Monocytes # (Manual) 0.5 K/mm3 (0.0-0.8) 11/15/16 07:50 Eosinophils # (Manual) 0.0 K/mm3 (0.0-0.4) 11/15/16 07:50 Basophils # (Manual) 0.0 K/mm3 (0.0-0.1) 11/15/16 07:50 Metamyelocytes # 0.0 K/mm3 11/15/16 07:50 Myelocytes # 0.0 K/mm3 11/15/16 07:50 Promyelocytes # 0.0 K/mm3 11/15/16 07:50 Blast Cells # 0.0 K/mm3 11/15/16 07:50 WBC Morphology Not Reportable 11/15/16 07:50 Hypersegmented Neuts Not Reportable 11/15/16 07:50 Hyposegmented Neuts Not Reportable 11/15/16 07:50 Hypogranular Neuts Not Reportable 11/15/16 07:50 Smudge Cells Not Reportable 11/15/16 07:50 Toxic Granulation Not Reportable 11/15/16 07:50 Toxic Vacuolation Not Reportable 11/15/16 07:50 Dohle Bodies Not Reportable 11/15/16 07:50 Pelger-Huet Anomaly Not Reportable 11/15/16 07:50 Dipti Rods Not Reportable 11/15/16 07:50 Platelet Estimate Not Reportable 11/15/16 07:50 Clumped Platelets Not Reportable 11/15/16 07:50 Plt Clumps, EDTA Not Reportable 11/15/16 07:50 Large Platelets Not Reportable 11/15/16 07:50 Giant Platelets Not Reportable 11/15/16 07:50 Platelet Satelliting Not Reportable 11/15/16 07:50 Plt Morphology Comment Not Reportable 11/15/16 07:50 RBC Morphology Normal 11/15/16 07:50 Dimorphic RBCs Not Reportable 11/15/16 07:50 Polychromasia Not Reportable 11/15/16 07:50 Hypochromasia Not Reportable 11/15/16 07:50 Poikilocytosis Not Reportable 11/15/16 07:50 Anisocytosis Not Reportable 11/15/16 07:50 Microcytosis Not Reportable 11/15/16 07:50 Macrocytosis Not Reportable 11/15/16 07:50 Spherocytes Not Reportable 11/15/16 07:50 Pappenheimer Bodies Not Reportable 11/15/16 07:50 Sickle Cells Not Reportable 11/15/16 07:50 Target Cells Not Reportable 11/15/16 07:50 Tear Drop Cells Not Reportable 11/15/16 07:50 Ovalocytes Not Reportable 11/15/16 07:50 Helmet Cells Not Reportable 11/15/16 07:50 [place] Bodies Not Reportable 11/15/16 07:50 [place] Rings Not Reportable 11/15/16 07:50 [place] Cells Not Reportable 11/15/16 07:50 Bite Cells Not Reportable 11/15/16 07:50 Crenated Cell Not Reportable 11/15/16 07:50 Elliptocytes Not Reportable 11/15/16 07:50 Acanthocytes (Spur) Not Reportable 11/15/16 07:50 Rouleaux Not Reportable 11/15/16 07:50 Hemoglobin C Crystals Not Reportable 11/15/16 07:50 Schistocytes Not Reportable 11/15/16 07:50 Malaria parasites Not Reportable 11/15/16 07:50 [place] Bodies Not Reportable 11/15/16 07:50 Hem Pathologist Commnt No 11/15/16 07:50 D-Dimer 298.29 ng/mlDDU (0-234) H 11/15/16 12:33 Sodium 138 mmol/L (137-145) 11/18/16 03:47 Potassium 3.7 mmol/L (3.6-5.0) 11/18/16 03:47 Chloride 99.8 mmol/L (98-107) 11/18/16 03:47 Carbon Dioxide 27 mmol/L (22-30) 11/18/16 03:47 Anion Gap 15 mmol/L 11/18/16 03:47 BUN 6 mg/dL (9-20) L 11/18/16 03:47 Creatinine 0.6 mg/dL (0.8-1.5) L 11/18/16 03:47 Estimated GFR > 60 ml/min 11/18/16 03:47 BUN/Creatinine Ratio 10.00 % 11/18/16 03:47 Glucose 135 mg/dL (75-100) H 11/18/16 03:47 POC Glucose 147 (70-105) H 11/18/16 16:34 Lactic Acid 2.20 mmol/L (0.7-2.0) H* 11/15/16 19:40 Calcium 7.8 mg/dL (8.4-10.2) L 11/18/16 03:47 Total Bilirubin 0.70 mg/dL (0.1-1.2) 11/15/16 07:50 Direct Bilirubin < 0.2 mg/dL (0-0.2) 11/15/16 07:50 Indirect Bilirubin 0.5 mg/dL 11/15/16 07:50 AST 42 units/L (5-40) H 11/15/16 07:50 ALT 57 units/L (7-56) H 11/15/16 07:50 Alkaline Phosphatase 69 units/L (35-129) 11/15/16 07:50 Troponin T < 0.010 ng/mL (0.00-0.029) 11/15/16 07:50 Total Protein 7.3 g/dL (6.3-8.2) 11/15/16 07:50 Albumin 3.8 g/dL (3.9-5) L 11/15/16 07:50 Albumin/Globulin Ratio 1.1 % 11/15/16 07:50 Urine Color Yellow (Yellow) 11/16/16 Unknown Urine Turbidity Clear (Clear) 11/16/16 Unknown Urine pH 5.0 (5.0-7.0) 11/16/16 Unknown Ur Specific [place] 1.024 (1.003-1.030) 11/16/16 Unknown Urine Protein <15 mg/dl mg/dL (Negative) 11/16/16 Unknown Urine Glucose (UA) Neg mg/dL (Negative) 11/16/16 Unknown Urine Ketones 20 mg/dL (Negative) 11/16/16 Unknown Urine Blood Neg (Negative) 11/16/16 Unknown Urine Nitrite Neg (Negative) 11/16/16 Unknown Urine Bilirubin Neg (Negative) 11/16/16 Unknown Urine Urobilinogen < 2.0 mg/dL (<2.0) 11/16/16 Unknown Ur Leukocyte Esterase Neg (Negative) 11/16/16 Unknown Urine WBC (Auto) 8.0 /HPF (0.0-6.0) H 11/16/16 Unknown Urine RBC (Auto) 1.0 /HPF (0.0-6.0) 11/16/16 Unknown U Epithel Cells (Auto) < 1.0 /HPF (0-13.0) 11/16/16 Unknown Urine Mucus Few /HPF 11/15/16 10:14 Vancomycin Trough 10.7 ug/mL (5.0-20.0) 11/18/16 12:11 Urine Opiates Screen Presumptive negative 11/16/16 Unknown Urine Methadone Screen Presumptive negative 11/16/16 Unknown Ur Barbiturates Screen Presumptive negative 11/16/16 Unknown Ur Phencyclidine Scrn Presumptive negative 11/16/16 Unknown Ur Amphetamines Screen Presumptive negative 11/16/16 Unknown U Benzodiazepines Scrn Presumptive negative 11/16/16 Unknown Urine Cocaine Screen Presumptive negative 11/16/16 Unknown U Marijuana (THC) Screen Presumptive negative 11/16/16 Unknown Drugs of Abuse Note Disclamer 11/16/16 Unknown Blood Type A POSITIVE 11/15/16 13:26 Antibody Screen Negative 11/15/16 13:26
[2016-11-18] MEDS: LOVENOX SUB-Q SCH (23:02)
[2016-11-19] MEDS: PERCOCET 5/325 PO PRN ×2 (04:06→11:29)
[2016-11-19] MEDS: VANCOMYCIN 1,750 MG in NACL 0.9% 500 ML 500 ML IV SCH (04:07)
[2016-11-19] MEDS: ZOSYN/NS 4.5GM/100ML 4.5 GM/100 ML VIAL IV SCH (05:55)
--- NOTE | 2016-11-19 10:40 | Discharge Summary ---
Providers - Providers Date of Admission: 11/15/16 12:59 Date of discharge: 11/19/16 Attending physician: BUCKY BEST 11/17/16 20:07 Consult to Wound/ET Nurse [CONS] Routine Reason For Exam: left leg cellulitsis Primary care physician: PHARMACIST APPRENTICE Hospitalization Condition: Fair Hospital course: + DM Disposition: DC-01 TO HOME OR SELFCARE Time spent for discharge: 35 min Core Measure Documentation - Palliative Care Palliative Care/ Comfort Measures: Not Applicable - Core Measures Any of the following diagnoses?: none Exam - Constitutional Vitals: Temp Pulse Resp BP Pulse Ox 98.5 F 88 20 126/78 96 11/19/16 08:00 11/19/16 08:00 11/19/16 08:00 11/19/16 08:00 11/19/16 08:00 Plan Activity: advance as tolerated, no driving until cleared by PCP Diet: low cholesterol, low salt, diabetic Follow up with: PRIMARY CARE,MD [Primary Care Provider] - 7 Days Prescriptions: Clindamycin [Clindamycin CAP] 600 mg PO Q8H #42 cap metFORMIN [Glucophage] 850 mg PO BID #60 tablet oxyCODONE /ACETAMINOPHEN [Percocet 5/325] 1 tab PO Q4HR #20 tab Sulfamethoxazole/Trimethoprim [Bactrim DS TAB] 1 each PO BID #14 tablet
[2016-11-19] MEDS: HABITROL TD SCH (11:18)
[2016-11-19 16:00] VITALS: BP 124/68
== END 2016-11-19 17:28 | disposition home or self-care (01) | DRG 872 ==
LOC: ED 07:24 → 3A 12:59
PROVIDERS: ADMIT Internal Medicine; ATTEND Internal Medicine
DX: A41.02 Sepsis due to Methicillin resistant Staphylococcus aureus (principal); L03.116 Cellulitis of left lower limb; Z68.42 Body mass index [BMI] 45.0-49.9, adult; E11.9 Type 2 diabetes mellitus without complications; E88.81 Metabolic syndrome and other insulin resistance; F17.210 Nicotine dependence, cigarettes, uncomplicated; E87.6 Hypokalemia; D69.6 Thrombocytopenia, unspecified; E66.01 Morbid (severe) obesity due to excess calories; G47.33 Obstructive sleep apnea (adult) (pediatric)
CPT/HCPCS: 36415; 70450; 71010; 80048; 80074; 80202; 80307; 81001; 82140; 82962; 83036; 84484; 85007; 85025; 85379; 86850; 86900; 86901; 87040; 93005; 93010; 94660; J1650; J1885; J2543; J3370; J7030; J7040